=== PATIENT | female | born 1980 | race Caucasian/White ===

== ENCOUNTER 2018-04-21 07:19 | Outpatient (CLI) | payer OTHER, SELFPAY ==
[2018-04-21] VITALS (12 sets, daily range): BP systolic 115–129; BP diastolic 78–94; PULSE 48–69; RESP 15–18; TEMP 36.3; O2SAT 99–100
--- NOTE | 2018-04-21 07:28 | DI.RAD.S_ITS ---
PROCEDURE: PAIN C/T TRANFORAMINAL INJECT INDICATIONS: SPINAL STENOSIS FINDINGS: Fluoroscopic spot filming was performed to verify placement of spinal needles at the right T4-T5 foraminal level, as labeled on the films. Appropriate location(s) of the needle tip(s) was confirmed by injection of iodinated contrast. IMPRESSION: Successful needle tip localization on the right at the T4-T5 level for transforaminal epidural steroid injection. Dictated by: Raoul Mae M.D. on 04/21/2018 at 13:30 Approved by: Raoul Mae M.D. on 04/21/2018 at 13:31
--- NOTE | 2018-04-21 08:22 | PM.PROC.1 ---
Procedures Date/Time Date of procedure: 04/21/18 Time of procedure: 08:22 General Procedure description: PREOP DIAGNOSIS 1. FORMAINAL STENOSIS WITH LE SYMPTOMS, POST OP DIAGNOSIS 1. FORMAINAL STENOSIS WITH LE SYMPTOMS, PROCEDURES 1. FLUOROSCOPICALLY GUIDED CONTRAST CONTROLLED TRANSFORAMINAL EPIDURAL STEROID INJECTION - RIGHT T4/5 TFESI PHYSICIAN: Edmundo Holland, DO INDICATIONS Tato is referred by EMELYN Tavarez for treatment of Foraminal Stenosis with Right thoracic Symptoms FINDINGS Foraminal Nerve Root Compression secondary to disc disease and facet hypertrophy DESCRIPTION OF PROCEDURE Following denial of allergy and review of potential side effects and complications, including, but not necessarily limited to, infection, allergic reaction, local tissue breakdown, stroke, temporary or permanent nerve injury, paralysis, and possible , the patient indicated that the patient understood and agreed to proceed. An informed consent document was signed by the patient, witnessed by a nurse, and placed in the patient's chart. Additionally, other treatment options including medications, modalities, and physical therapy were reviewed with the patient. After review of previous anaesthesic history and IV conscious sedation the patient was deemed safe to proceed with todays procedure with IV conscious sedation as ASA class II designation. Safety time-out was performed to confirm patient ID, procedure to be performed and site of procedure. IV sedation was accomplished with a combination of 5mg was administered by the RN after DO order, titrated to patient comfort during the course of the procedure while the patient remained responsive to all verbal commands In the prone position following sterile prep and drape of the lumbar region, the right T4/5 posterior neuroforamen was identified fluoroscopically. The skin was anesthetized via a 25-gauge 1.5-inch needle with 1% lidocaine solution. At this point, a 25-gauge 3.5-inch spinal needle was atraumatically introduced and advanced under fluoroscopic guidance through the posterior right T4/5 neuroforamen to approximately the anterior aspect of the canal. Depth was confirmed on lateral view. Following negative aspiration, injection of approximately 1.5 cc of Isovue 200 under live fluoroscopy in the AP view confirmed excellent flow along the nerve root, into the epidural space without vascular or intrathecal uptake observed. Radiological data, including multiple fluoroscopic views reveal the needle placement in the right T8/8 posterior neuroforamen. Subsequent views show flow of contrast material flowing superiorly and inferiorly along the nerve root confirming epidural flow. Subsequently, a test dose of 1.5 cc of 1% lidocaine solution was administered and patient was observed for signs or symptoms of complications, including abdominal pain, shortness of breath, bilateral upper or lower extremity weakness, nausea and vomiting, prior to steroid injection. At this point, a total of 3 cc or 30 mg of dexamethasone was injected without incident. The procedure tolerated the procedure well without signs or symptoms of complications prior to transfer to the recovery area continued monitoring without incident.The patient was then transferred to the recovery area where they were observed for an appropriate time after the injection. The patient reported a VAS score of 7 prior to the procedure and a post-procedure VAS of 0. Total Fluoroscopy Time: 17.3 seconds Total Conscious Sedation Time: 24min POST OP INSTRUCTIONS The patient was provided a Pain Log to continue to record their response to the target-specific procedure prior to follow-up visit with their referring physician. Additionally, specific post-injection care instructions and a contact number to our office were provided if concerns arise regarding possible complications associated with the procedure are suspected. Edmundo Holland DO Complications: none
--- NOTE | 2018-04-21 08:26 | P.PCN_ITS ---
Procedures Date/Time Date of procedure: 04/21/18 Time of procedure: 08:22 General Procedure description: PREOP DIAGNOSIS 1. FORMAINAL STENOSIS WITH LE SYMPTOMS, POST OP DIAGNOSIS 1. FORMAINAL STENOSIS WITH LE SYMPTOMS, PROCEDURES 1. FLUOROSCOPICALLY GUIDED CONTRAST CONTROLLED TRANSFORAMINAL EPIDURAL STEROID INJECTION - RIGHT T4/5 TFESI PHYSICIAN: Edmundo Holland, DO INDICATIONS Tato is referred by EMELYN Tavarez for treatment of Foraminal Stenosis with Right thoracic Symptoms FINDINGS Foraminal Nerve Root Compression secondary to disc disease and facet hypertrophy DESCRIPTION OF PROCEDURE Following denial of allergy and review of potential side effects and complications, including, but not necessarily limited to, infection, allergic reaction, local tissue breakdown, stroke, temporary or permanent nerve injury, paralysis, and possible , the patient indicated that the patient understood and agreed to proceed. An informed consent document was signed by the patient, witnessed by a nurse, and placed in the patient's chart. Additionally, other treatment options including medications, modalities, and physical therapy were reviewed with the patient. After review of previous anaesthesic history and IV conscious sedation the patient was deemed safe to proceed with todays procedure with IV conscious sedation as ASA class II designation. Safety time-out was performed to confirm patient ID, procedure to be performed and site of procedure. IV sedation was accomplished with a combination of 5mg was administered by the RN after DO order , titrated to patient comfort during the course of the procedure while the patient remained responsive to all verbal commands In the prone position following sterile prep and drape of the lumbar region, the right T4/5 posterior neuroforamen was identified fluoroscopically. The skin was anesthetized via a 25-gauge 1.5-inch needle with 1% lidocaine solution. At this point, a 25-gauge 3.5-inch spinal needle was atraumatically introduced and advanced under fluoroscopic guidance through the posterior right T4/5 neuroforamen to approximately the anterior aspect of the canal. Depth was confirmed on lateral view. Following negative aspiration, injection of approximately 1.5 cc of Isovue 200 under live fluoroscopy in the AP view confirmed excellent flow along the nerve root, into the epidural space without vascular or intrathecal uptake observed. Radiological data, including multiple fluoroscopic views reveal the needle placement in the right T8/8 posterior neuroforamen. Subsequent views show flow of contrast material flowing superiorly and inferiorly along the nerve root confirming epidural flow. Subsequently, a test dose of 1.5 cc of 1% lidocaine solution was administered and patient was observed for signs or symptoms of complications, including abdominal pain, shortness of breath, bilateral upper or lower extremity weakness , nausea and vomiting, prior to steroid injection. At this point, a total of 3 cc or 30 mg of dexamethasone was injected without incident. The procedure tolerated the procedure well without signs or symptoms of complications prior to transfer to the recovery area continued monitoring without incident.The patient was then transferred to the recovery area where they were observed for an appropriate time after the injection. The patient reported a VAS score of 7 prior to the procedure and a post- procedure VAS of 0. Total Fluoroscopy Time: 17.3 seconds Total Conscious Sedation Time: 24min POST OP INSTRUCTIONS The patient was provided a Pain Log to continue to record their response to the target-specific procedure prior to follow-up visit with their referring physician. Additionally, specific post-injection care instructions and a contact number to our office were provided if concerns arise regarding possible complications associated with the procedure are suspected. Edmundo Holland DO Complications: none
[2018-04-21] MEDS: MIDAZOLAM 5 MG/5 ML VIAL IV (08:30)
[2018-04-21] MEDS: BUPIVACAINE 0.25% (PF) VIAL 2 ML INJ (08:54)
[2018-04-21] MEDS: IOPAMIDOL 15 ML VIAL 3 ML INJ (08:54)
[2018-04-21] MEDS: DEXAMETHASONE 10 MG/ML VIAL 30 MG INJ (08:55)
== END 2018-04-21 09:49 ==
LOC: RAD 07:21
PROVIDERS: Visit Provider Physical Medicine & Rehabilitation
DX: M48.04 Spinal stenosis, thoracic region (principal); M51.14 Intervertebral disc disorders with radiculopathy, thoracic region
CPT/HCPCS: 64479; 99152; 99153; J1100; J2250

== ENCOUNTER → 2020-05-21 10:55 | Outpatient (CLI) | payer OTHER, MEDICAID, SELFPAY ==
--- NOTE | 2020-05-21 10:58 | DI.RAD.S_ITS ---
PROCEDURE: XR LUMBAR SPINE MIN 4V INDICATIONS: SI joint pain TECHNIQUE: 4 views of the lumbar spine were acquired. COMPARISON: None. FINDINGS: Bones: 5 nonrib-bearing vertebrae are present. There is normal bony alignment. No vertebral body compression fractures. No suspicious bony lesions. Soft tissues: Overlying bowel gas pattern is normal. No suspicious soft tissue calcifications. Oblique images: No pars defects. IMPRESSION: Lumbar spine without acute radiographic abnormalities or significant spondylitic changes. Dictated by: Lalo Batista M.D. on 05/21/2020 at 11:50 Approved by: Lalo Batista M.D. on 05/21/2020 at 11:51
--- NOTE | 2020-05-21 10:58 | DI.RAD.S_ITS ---
PROCEDURE: XR CERVICAL SPINE 4V OR 5V INDICATIONS: Neck pain upper extremity paresthesias TECHNIQUE: 5 views of the cervical spine acquired. COMPARISON: None. FINDINGS: Bones: No fractures or dislocations to the T1 level. Oblique images demonstrate no bony foraminal stenoses. Straightening of cervical lordosis which may be due to patient positioning and/or concurrent muscle spasms. Minimal degenerative endplate changes of the mid and lower cervical spine. Soft tissues: No prevertebral soft tissue swelling. IMPRESSION: 1. Cervical spine without acute fracture. 2. Minimal mid and lower cervical spondylosis. 3. Mild straightening of normal cervical lordosis likely related to positioning and/or concurrent muscle spasms. Dictated by: Lalo Batista M.D. on 05/21/2020 at 11:47 Approved by: Lalo Batista M.D. on 05/21/2020 at 11:48
--- NOTE | 2020-05-21 10:58 | DI.RAD.S_ITS ---
PROCEDURE: XR THORACIC SPINE 2V INDICATIONS: Thoracic pain TECHNIQUE: AP and lateral views of the thoracic spine were acquired. COMPARISON: None. FINDINGS: Bones: No fractures or dislocations. No suspicious bony lesions. 12 pairs of ribs are noted, and appear intact where visualized. Minimal dextrocurvature of the midthoracic spine with reciprocal gentle levocurvature of the thoracolumbar junction. This may be due to patient positioning. Minimal spondylitic changes of the mid and lower thoracic spine. Soft tissues: No paravertebral stripe thickening. IMPRESSION: Thoracic spine without acute fracture or dislocation. Minimal multilevel thoracic spondylosis. Dictated by: Lalo Batista M.D. on 05/21/2020 at 11:48 Approved by: Lalo Batista M.D. on 05/21/2020 at 11:50
== END ==
PROVIDERS: PCP Nurse Practitioner Family; Referring Provider Physical Medicine & Rehabilitation; Visit Provider Physical Medicine & Rehabilitation
DX: M53.3 Sacrococcygeal disorders, not elsewhere classified (principal); M47.816 Spondylosis without myelopathy or radiculopathy, lumbar region; M51.04 Intervertebral disc disorders with myelopathy, thoracic region; M47.24 Other spondylosis with radiculopathy, thoracic region; M54.2 Cervicalgia; R20.2 Paresthesia of skin
CPT/HCPCS: 72050; 72072; 72110; 99213

== ENCOUNTER → 2021-10-28 10:25 | Outpatient (CLI) | payer OTHER, MEDICAID, SELFPAY ==
[2021-10-28 12:59] LABS: COVID19 -Nasal RAPID Negative (Negative)
== END ==
PROVIDERS: PCP Nurse Practitioner Family; Visit Provider Physical Medicine & Rehabilitation
DX: Z20.822 Contact with and (suspected) exposure to COVID-19 (principal)
CPT/HCPCS: 87635; C9803

== ENCOUNTER 2021-10-29 08:38 | Outpatient (CLI) | payer OTHER, MEDICAID, SELFPAY ==
[2021-10-29] VITALS (7 sets, daily range): BP systolic 105–116; BP diastolic 58–82; PULSE 56–77; RESP 12–20; TEMP 37; O2SAT 96–100
--- NOTE | 2021-10-29 08:40 | DI.RAD.S_ITS ---
PROCEDURE: PAIN C/T INTERLAMINAR INJECT INDICATIONS: SPINAL STENOSIS COMPARISON: [facility], CR, XR THORACIC SPINE 3 VIEWS, 09/27/2021, 14:50. FINDINGS: Fluoroscopic spot filming was performed to verify placement of a spinal needle at the T4-T5 level, as labeled on the films. Appropriate location of the needle tip was confirmed by injection of iodinated contrast. IMPRESSION: No significant intraprocedural abnormality. Dictated by: Eugene Whyte M.D. on 10/29/2021 at 9:15 Approved by: Eugene Whyte M.D. on 10/29/2021 at 9:15
[2021-10-29] MEDS: fentaNYL 100 MCG/2 ML INJ 50 MCG IV (09:50)
[2021-10-29] MEDS: MIDAZOLAM 5 MG/5 ML VIAL IV (09:50)
[2021-10-29] MEDS: IOPAMIDOL 15 ML VIAL 3 ML INJ (09:53)
[2021-10-29] MEDS: DEXAMETHASONE 10 MG/ML VIAL 30 MG INJ (09:53)
[2021-10-29] MEDS: BUPIVACAINE 0.25% (PF) VIAL 2 ML INJ (09:53)
--- NOTE | 2021-10-29 10:05 | P.PCN_ITS ---
Date/Time/Diagnoses Date of procedure: 10/29/21 Time of procedure: 10:05 Pre-procedure diagnosis: Thoracic stenosis with HNP This procedure is found to meet the Governor's proclamation 20-24.2 regarding non urgent procedures. This patient meets multiple criteria for the procedure including continuing or worsening of significant or severe pain, combined with further deterioration of the patient's condition or overall health as well as delay in treatment would be expected to result in less positive ultimate medical outcome. Therefore the decision to perform the procedure in an outpatient hospital setting is found to be in accordance with guidelines of the proclamation. Post-procedure diagnosis: same Procedure Notes Procedure: Fluoroscopic guided, contrast controlled T4/5 translaminar epidural steroid inj ection with conscious sedation. Indications: Tato is referred by EMELYN Tavarez for treatment of thoracic DDD/DJD with radiculopathy Physician: Edmundo Holland Total Fluoroscopy time (seconds): 9 Total sedation minutes: 10 Complications: none Procedure in detail & Post-procedure care: DESCRIPTION OF PROCEDURE Fluoroscopic guided, contrast controlled T4/5 translaminar epidural steroid injection with conscious sedation. Following review of allergy review potential side effects and complications, including, but not necessarily limited to, infection, allergic reaction, local tissue breakdown, temporary as well as permanent nerve injury, stroke, paralysis and possible , the patient indicated that they understood and agreed to proceed. An informed consent document was signed by the patient, witnessed by the nurse, and placed in the patient's chart. Additionally other treatment options including modalities, medications and physical therapy were reviewed with the patient. After review of previous anaesthesic history and IV conscious sedation the patient was deemed safe to proceed with today's procedure with IV conscious sedation as ASA class II designation. Safety time-out was performed to confirm patient ID, procedure to be performed and site of procedure. IV sedation was accomplished with a combination of 2mg of Versed and 50mcg of Fentanyl administered by the RN after DO order, titrated to patient comfort during the course of the procedure while the patient remained responsive to all verbal commands. In the prone position, following sterile prep and drape of the thoracic region the T4/5 translaminar space was identified fluoroscopically. The skin was anesthetized via 25 gauge 1.5inch needle with 1% lidocaine solution. At this point a 22gauge epidural needle was atraumatically introduced and advanced under fluoroscopic guidance into the region of the T4/5 translaminar space depth was confirmed on lateral view. Radiographic data, including multiple fluoroscopic views of the thoracic spine, reveals spinal needle at the T4/5 translaminar space. Lateral views then showed the placement of the needle in the epidural space. Subsequent view show contras t material flowing superiorly and inferiorly in the epidural space. No vascular or intrathecal uptake is observed. At this point using loss of resistance technique with saline and the epidural space was entered. This was confirmed followed negative aspiration and injection of approximately 1.5cc of Isovue 200 showed excellent epidural flow without vascular or intrathecal uptake. At this point, 1cc of 1% lidocaine solution was admitted as a test dose and the patient was observed for an appropriate period of time without signs or symptoms of complications, including abdominal pain, shortness of breath, bilateral upper and lower extremity weakness, nausea and vomiting, prior to steroid injection. Subsequently, 3cc or 30mg of dexamethasone was then injected without incident. The patient tolerated the procedure well without signs of complications and subsequently was transferred to the recovery room for further monitoring. The patient was then transferred to the recovery area with their observed for an appropriate time after the injection. Patient reported a VAS score of 7 prior to the procedure and post-procedure VAS of 2.
== END 2021-10-29 10:19 | disposition home or self-care (01) ==
LOC: RAD 08:40
PROVIDERS: PCP Nurse Practitioner Family; Referring Provider Physical Medicine & Rehabilitation; Visit Provider Physical Medicine & Rehabilitation
DX: M48.04 Spinal stenosis, thoracic region (principal); M51.14 Intervertebral disc disorders with radiculopathy, thoracic region
CPT/HCPCS: 62321; 99152; J1100; J2250; J3010